=== PATIENT | female | born 1975 ===

== ENCOUNTER 2025-07-13 06:19 | Day surgery (SDC) | payer OTHER ==
[2025-07-07 10:12] LABS: BASO % 0.3 % (0.1-1.2); EOS # 0.09 (0.04-0.54); EOS % 1.4 % (0.7-7.0); LYMPH # 2.19 (1.18-3.74); LYMPH % 32.9 % (19.3-53.1); MEAN PLATELET VOLUME 9.80 fl (9.4-12.4); MONO # 0.43 (0.24-0.82); MONO % 6.5 % (4.7-12.5); NEUT # 3.92 (1.56-6.13); NEUT % 58.7 % (34.0-71.1); RED CELL DISTRIBUTION WIDTH 13.9 % (11.6-14.4)
[2025-07-07 10:16] VITALS: BP 128/83
[2025-07-07 10:18] LABS: URINE APPEARANCE Clear; URINE BILIRRUBIN Negative (NEGATIVE); URINE BLOOD Negative; URINE COLOR Yellow; URINE GLUCOSE Negative (NEGATIVE); URINE KETONE Negative (NEGATIVE); URINE LEUKOCYTE Moderate; URINE NITRATE Negative; URINE PROTEIN Negative (NEGATIVE); URINE UROBILINOGEN 0.2 E.U./dl
[2025-07-07 10:22] LABS: URINE CAST 1.69 uL (0.0-1.40); URINE EPITHELIAL CELLS 63.6 uL (0.0-38.8); URINE RBC 6.2 uL (0.0-20.8); URINE WBC 76.0 uL (0.0-23.2)
[2025-07-07 10:45] LABS: INR 0.95
[2025-07-07 10:46] LABS: ALT/SGPT 27.0 U/L (12-78); AST/SGOT 15.0 U/L (15-37); BILIRUBIN TOTAL 0.55 mg/dL (0.3-1.2); BUN CREA RATIO 17.0 (7.0-25.0); CREATININE SERUM 0.66 mg/dL (0.55-1.02); GFR 94.8; GLOBULINA 4.1 G/DL (2.4-3.5); GLUCOSE FASTING 88.0 mg/dL (65-100); OSMOLALITY SERUM 274.0 MOSM/KG (275-295)
[2025-07-07 10:51] LABS: TYPE CELLS SQUAMOUS
[~2025-07-13 06:19] MED LIST: ENALAPRIL M1 MG/1 ML PO
[2025-07-13] MEDS ORDERED: CEFAZOLIN SODIUM 1,000 MG VIAL ONE (07:47)
[2025-07-13] MEDS ORDERED: POVIDONE-IODINE 118 ML BOTT TOP ONE (09:11)
[2025-07-13] MEDS ORDERED: DOXYCYCLINE HY100 M2 PO (12:29)
[2025-07-13] MEDS ORDERED: IBU800 MG PO (12:30)
== END 2025-07-13 15:15 | disposition home or self-care (01) ==
LOC: CIR.AMB 06:19
PROVIDERS: ATTEND Obstetrics & Gynecology
DX: D01.3 Carcinoma in situ of anus and anal canal (principal)